=== PATIENT | female | born 1990 | race Caucasian/White ===

== ENCOUNTER 2023-03-10 13:02 | Day surgery (SDC) | payer OTHER ==
[2023-03-10] MEDS ORDERED: Sodium Chloride 0.9(Preservative Free) 10 ML IJ ONE (13:03)
[2023-03-10] MEDS ORDERED: XYLOCAINE 1% HCL 20 ML MDV IJ ONE (13:03)
[2023-03-10] MEDS ORDERED: Depo-Medrol 80 MG/ML IM ONE (13:03)
[2023-03-10 15:29] LABS: HCG URINE TEST NEGATIVE (NEGATIVE)
[2023-03-10] MEDS ORDERED: DIPRIVAN 200 MG/20 ML IV ONE (16:15)
[2023-03-10] MEDS ORDERED: Lactated Ringers 1,000 ML IV ONE (18:04)
--- NOTE | 2023-03-10 20:53 | XRAY ---
Indication: Lumbar GISELLA. Intraoperative fluoroscopy provided for 16 seconds. 2 digital spot images submitted for interpretation demonstrates posterior needle tip projecting over posterior to lumbosacral junction interspace. Small amount of contrast injected for needle tip placement. Correlate with intraoperative findings/report.
--- NOTE | 2023-03-11 09:54 | XRAY ---
16 seconds of fluoroscopy was used in surgery for a lumbar GISELLA.
== END 2023-03-10 16:43 | disposition home or self-care (01) ==
LOC: SDC-PAIN 13:02
PROVIDERS: ATTEND Psychiatry & Neurology Pain Medicine
DX: M54.16 Radiculopathy, lumbar region (principal); Z79.899 Other long term (current) drug therapy
CPT/HCPCS: 62323; 72100; 77003; 81025; J1040; J2704; Q9966

== ENCOUNTER 2023-07-28 11:50 | Day surgery (SDC) | payer OTHER ==
[2023-07-28] MEDS ORDERED: Sodium Chloride 0.9(Preservative Free) 10 ML IJ ONE (11:51)
[2023-07-28] MEDS ORDERED: Decadron 4 MG INJ IV ONE (11:51)
[2023-07-28 13:01] LABS: HCG URINE TEST NEGATIVE (NEGATIVE)
[2023-07-28] MEDS ORDERED: DIPRIVAN 200 MG/20 ML IV ONE ×2 (13:54→14:00)
[2023-07-28] MEDS ORDERED: Lactated Ringers 1,000 ML IV ONE (16:40)
--- NOTE | 2023-07-28 16:53 | XRAY ---
Indication: Left L4-S1 transforaminal GISELLA. Intraoperative fluoroscopy provided for 34 seconds. 6 digital spot image submitted for interpretation demonstrates posterior needle tips projecting over the expected left L4 and L5 nerve roots. Small amount of contrast injected for needle tip placement. Correlate with intraoperative findings/report.
--- NOTE | 2023-07-28 16:57 | XRAY ---
34 seconds of fluoroscopy was used in surgery for a left L4-S1 transforaminal GISELLA.
== END 2023-07-28 14:21 | disposition home or self-care (01) ==
LOC: SDC-PAIN 11:50
PROVIDERS: ATTEND Psychiatry & Neurology Pain Medicine
DX: M54.16 Radiculopathy, lumbar region (principal)
CPT/HCPCS: 64483; 64484; 72100; 77003; 81025; J1100; J2704; Q9966

== ENCOUNTER 2024-01-26 10:10 | Day surgery (SDC) | payer OTHER ==
[2024-01-26] MEDS ORDERED: Sodium Chloride 0.9(Preservative Free) 10 ML IJ ONE (10:11)
[2024-01-26] MEDS ORDERED: Decadron 4 MG INJ IV ONE (10:11)
[2024-01-26 12:30] LABS: HCG URINE TEST NEGATIVE (NEGATIVE)
[2024-01-26] MEDS ORDERED: DIPRIVAN 200 MG/20 ML IV ONE ×2 (13:32→13:38)
[2024-01-26] MEDS ORDERED: Xylocaine-Mpf 2% 5 Ml Vial ONE (13:34)
[2024-01-26] MEDS ORDERED: Lactated Ringers 1,000 ML IV ONE (14:01)
--- NOTE | 2024-01-26 16:54 | XRAY ---
Indication: Left L4-S1 transforaminal GISELLA. Intraoperative fluoroscopy provided for 33 seconds. 4 digital spot image submitted for interpretation demonstrates posterior needle tips projecting over the expected left L4 and L5 nerve roots. Small amount of contrast injected for needle tip placement. Correlate with intraoperative findings/report.
--- NOTE | 2024-01-26 17:03 | XRAY ---
33 seconds of fluoroscopy was used in surgery for a left L4-S1 transforaminal GISELLA.
== END 2024-01-26 14:09 | disposition home or self-care (01) ==
LOC: SDC-PAIN 10:10
PROVIDERS: ATTEND Psychiatry & Neurology Pain Medicine
DX: M54.16 Radiculopathy, lumbar region (principal)
CPT/HCPCS: 64483; 64484; 72100; 77003; 81025; J1100; J2704; Q9966

== ENCOUNTER 2024-05-10 11:33 | Day surgery (SDC) | payer OTHER ==
[2024-05-10] MEDS ORDERED: Depo-Medrol 40 MG/ML IM ONE (11:34)
[2024-05-10] MEDS ORDERED: BUPIVACAINE 0.5% VIAL IJ ONE (11:34)
[2024-05-10 12:37] LABS: HCG URINE TEST NEGATIVE (NEGATIVE)
[2024-05-10] MEDS ORDERED: Xylocaine-Mpf 2% 5 Ml Vial ONE (13:10)
[2024-05-10] MEDS ORDERED: DIPRIVAN 200 MG/20 ML IV ONE ×2 (14:32→14:41)
--- NOTE | 2024-05-10 16:33 | XRAY ---
Indication: Bilateral SI joint injection. Intraoperative fluoroscopy provided for 24 seconds. 3 digital spot images submitted for interpretation demonstrates posterior needle tips projecting over the left and right SI joints. Small amount of contrast injected for needle tip placement. Correlate with intraoperative findings/report.
--- NOTE | 2024-05-10 16:55 | XRAY ---
24 seconds of fluoroscopy was used in surgery for a bilateral sacroiliac joint injection.
== END 2024-05-10 15:06 | disposition home or self-care (01) ==
LOC: SDC-PAIN 11:33
PROVIDERS: ATTEND Psychiatry & Neurology Pain Medicine
DX: M46.1 Sacroiliitis, not elsewhere classified (principal)
CPT/HCPCS: 01992; 27096; 36410; 72202; 76942; 77002; 81025; G0260; J2704; Q9966